=== PATIENT | male | born 1995 | race American Indian/Alaskan Native ===

== ENCOUNTER 2021-02-18 22:44 | Emergency (ER) | payer SELFPAY ==
[2021-02-18] MEDS ORDERED: ONDANSETRON 4 MG ODT TAB PO ONE (22:52)
[2021-02-19 02:02] LABS: Hematocrit 41.1 % (35.5-45.6); Hemoglobin 13.2 gm/dl (11.8-15.2); Mean Corpuscular HGB Conc 32 % (32-34); Mean Corpuscular Volume 84 fl (84-94); Platelet Count 312 K/mm3 (140-440); Red Blood Count 4.91 M/mm3 (3.65-5.03); Red Cell Distribution Width 14.4 % (13.2-15.2)
[2021-02-19 02:03] LABS: Alanine Aminotransferase 8 units/L (7-56); Albumin 4.1 g/dL (3.9-5); BUN/Creatinine Ratio 18; Blood Urea Nitrogen 14 mg/dL (9-20); Calcium 8.9 mg/dL (8.4-10.2); Hemolysis Index 9
[2021-02-19] MEDS ORDERED: SODIUM CHLORIDE 0.9% 1000 ML 1,000 ML IV ONE (04:08)
[2021-02-19] MEDS ORDERED: ONDANSETRON 4 MG/2 ML INJ IV ONE (04:08)
--- NOTE | 2021-02-19 04:26 | Emergency Department Report ---
ED Abdominal Pain HPI - General Chief Complaint: Abdominal Pain Stated Complaint: ABD PAIN Time Seen by Provider: 02/19/21 04:07 Source: patient Mode of arrival: Ambulatory Limitations: No Limitations - History of Present Illness Initial Comments: Patient 25-year-old male who presents for abdominal pain constipation x1 week. Patient denies fever chills no vomiting intermittent nausea. Patient is tolerating p.o. intake however. Patient states symptoms are exacerbated by attempted bowel movement as he is unable to have a bowel movement for the past week. Again however he is tolerating p.o. intake. Patient appears nontoxic, patient denies other symptoms there is no cough there is no chills no malaise. MD Complaint: abdominal pain - Related Data Previous Rx's Medication Instructions Recorded Last Taken Type bisacodyL [Dulcolax suppos] 10 mg [place] QDAY PRN #7 supp.rect 02/19/21 Unknown Rx polyethylene glycoL 3350 [Miralax 17 gm PO BID PRN #14 packet 02/19/21 Unknown Rx 3350] ED Review of Systems ROS: Stated complaint: ABD PAIN Other details as noted in HPI Constitutional: denies: chills, fever Eyes: denies: eye pain, eye discharge, vision change ENT: denies: ear pain, throat pain Respiratory: denies: cough, shortness of breath, wheezing Cardiovascular: denies: chest pain, palpitations Endocrine: no symptoms reported Gastrointestinal: abdominal pain, nausea, constipation. denies: vomiting, diarrhea, melena Genitourinary: denies: urgency, dysuria, frequency, hematuria, discharge Musculoskeletal: back pain. denies: joint swelling, arthralgia Skin: as per HPI Neurological: denies: headache, weakness, paresthesias, vertigo Psychiatric: denies: anxiety, depression Hematological/Lymphatic: denies: easy bleeding, easy bruising ED Past Medical Hx - Past Medical History Previous Medical History?: No - Surgical History Past Surgical History?: No - Medications Home Medications: Home Medications Medication Instructions Recorded Confirmed Last Taken Type bisacodyL [Dulcolax suppos] 10 mg IL QDAY PRN #7 supp.rect 02/19/21 Unknown Rx polyethylene glycoL 3350 [Miralax 17 gm PO BID PRN #14 packet 02/19/21 Unknown Rx 3350] ED Physical Exam - General Limitations: No Limitations General appearance: alert, in no apparent distress - Head Head exam: Present: atraumatic, normocephalic - Eye Eye exam: Present: normal appearance, EOMI Pupils: Present: normal accommodation - ENT ENT exam: Present: mucous membranes moist - Neck Neck exam: Present: normal inspection - Respiratory Respiratory exam: Present: normal lung sounds bilaterally. Absent: respiratory distress, wheezes, stridor - Cardiovascular Cardiovascular Exam: Present: regular rate, normal rhythm, normal heart sounds. Absent: systolic murmur, diastolic murmur, rubs, gallop - GI/Abdominal GI/Abdominal exam: Present: soft, normal bowel sounds. Absent: distended, tenderness, guarding, rebound, rigid, bruit, hernia - Rectal Rectal exam: Absent: black stool, bloody stool, hemorrhoids, tenderness - Extremities Exam Extremities exam: Present: normal inspection, full ROM - Back Exam Back exam: Present: normal inspection, full ROM. Absent: CVA tenderness (R), CVA tenderness (L) - Neurological Exam Neurological exam: Present: alert, oriented X3, CN II-XII intact, normal gait - Expanded Neurological Exam Expanded Patient oriented to: Present: person, place, time Speech: Present: fluid speech Best Eye Response ([place]): (4) open spontaneously Best Motor Response ([place]): (6) obeys commands Best Verbal Response ([place]): (5) oriented [place] Total: 15 - Psychiatric Psychiatric exam: Present: normal affect, normal mood - Skin Skin exam: Present: warm, dry, intact, normal color. Absent: rash ED Course Vital Signs 02/18/21 22:47 Temperature 98.5 F Pulse Rate 81 Respiratory 16 Rate Blood Pressure 125/66 O2 Sat by Pulse 100 Oximetry ED Medical Decision Making - Lab Data Result diagrams: 02/18/21 22:57 02/18/21 22:57 - Radiology Data Radiology results: report reviewed, image reviewed ABDOMEN 2 VIEWS INDICATION / CLINICAL INFORMATION: abd pain constipation. COMPARISON: None available. FINDINGS: TUBES / LINES: None. BOWEL GAS PATTERN: Bowel gas pattern is nonobstructive. Moderate colonic stool burden. FREE AIR / EXTRALUMINAL GAS: None seen. ADDITIONAL FINDINGS: Sclerotic focus within the left ilium presumably reflect bone island in the absence of a history of prior malignancy. CHEST: Visualized chest shows no significant abnormality. IMPRESSION: 1. No acute abnormality. Moderate constipation. Signer Name: Rajiv Meza MD Signed: 02/19/2021 4:48 AM Workstation Name: [id number] - Medical Decision Making KUB xray: moderate constipation, plan DC to home with prescriptions, hydrate as directed, patient refused medications ordered in ED. Patient will be DC'd home in stable condition at this time. Patient is currently alert oriented x3 appears nontoxic patient with no acute distress at this time. Patient is tolerating p.o. intake. Critical care attestation.: If time is entered above; I have spent that time in minutes in the direct care of this critically ill patient, excluding procedure time. ED Disposition Clinical Impression: Constipation Qualifiers: Constipation type: unspecified constipation type Qualified Code(s): K59.00 - Constipation, unspecified Disposition: HOME / SELF CARE / HOMELESS Is pt being admited?: No Does the pt Need Aspirin: No Condition: Stable Instructions: Constipation, Adult Additional Instructions: Medications as prescribed, hydrate as directed, follow-up with your doctor in 2 to 3 days. Return to emergency department should symptoms worsen. Prescriptions: bisacodyL [Dulcolax suppos] 10 mg [place] QDAY PRN #7 supp.rect PRN Reason: Constipation polyethylene glycoL 3350 [Miralax 3350] 17 gm PO BID PRN #14 packet PRN Reason: constipation Referrals: [facility] [Provider Group] - 3-5 Days Forms: Work/School Release Form(ED) Time of Disposition: 05:09
--- NOTE | 2021-02-19 04:52 | XRay Report ---
ABDOMEN 2 VIEWS INDICATION / CLINICAL INFORMATION: abd pain constipation. COMPARISON: None available. FINDINGS: TUBES / LINES: None. BOWEL GAS PATTERN: Bowel gas pattern is nonobstructive. Moderate colonic stool burden. FREE AIR / EXTRALUMINAL GAS: None seen. ADDITIONAL FINDINGS: Sclerotic focus within the left ilium presumably reflect bone island in the abse nce of a history of prior malignancy. CHEST: Visualized chest shows no significant abnormality. IMPRESSION: 1. No acute abnormality. Moderate constipation. Signer Name: Rajiv Meza MD Signed: 02/19/2021 4:48 AM Workstation Name: [id number]
[2021-02-19 05:29] VITALS: BP 111/51
[2021-02-19 05:56] LABS: Large Platelets Few; Platelet Estimate Consistent w Auto; RBC Morphology Normal; Total Cells Counted 100
== END 2021-02-19 05:29 | disposition home or self-care (01) ==
LOC: ED 22:44
DX: K59.00 Constipation, unspecified (principal)
CPT/HCPCS: 36415; 74018; 80053; 83690; 85007; 85025; 99283; J3490; Q0162